=== PATIENT | female | born 1965 | race Caucasian/White ===

== ENCOUNTER → 2019-04-06 | Outpatient (CLI) | payer MEDICARE, OTHER ==
--- NOTE | 2019-04-07 10:16 | WOMENS IMAGING REPORT ---
EXAM DESCRIPTION: 3D SCREENING MAMMO BILAT COMPLETED DATE/TIME: 04/06/2019 3:22 pm REASON FOR STUDY: Z12.31 SCREENING MAMMO Z12.31 ENCNTR SCREEN MAMMOGRAM FOR MALIGNANT NEOPLASM OF B RE COMPARISON: [id number] EXAM PARAMETERS: Views: Standard craniocaudal and mediolateral oblique views of each breast recorded using digital acquisition and breast tomosynthesis. Read with the assistance of CAD. .[facility] - [facility] [employer] Version 9.2 LIMITATIONS: None. FINDINGS: No suspicious masses, suspicious calcifications or architectural distortion. No areas of c oncern. IMPRESSION: NEGATIVE MAMMOGRAM. BIRADS 1. BREAST DENSITY: b. There are scattered areas of fibroglandular density. BIRAD: ASSESSMENT: 1 NEGATIVE RECOMMENDATION: ROUTINE SCREENING COMMENT: The patient has been notified of the results by letter per MQSA requirements. Additional no tification policies are in place for contacting patient with suspicious or incomplete findings. Quality ID #[id number]: The [employer] recommends an annual screening mammogram for women aged 40 years or over. This facility utilizes a reminder system to ensure that all patients receive reminder letters, and/or direct phone calls for appointments. This includes reminders for routine scr eening mammograms, diagnostic mammograms, or other Breast Imaging Interventions when appropriate. Th is patient will be placed in the appropriate reminder system. TECHNICAL DOCUMENTATION: FINDING NUMBER: (1) ASSESSMENT: (1) JOB ID: [id number] [employer]- All Rights Reserved Reading location - IP/workstation name: [email or web address]
== END ==
LOC: WI 14:55
PROVIDERS: ATTEND Nurse Practitioner
DX: Z12.31 Encounter for screening mammogram for malignant neoplasm of breast (principal)
CPT/HCPCS: 77063; 77067

== ENCOUNTER → 2019-04-21 | Outpatient (CLI) | payer MEDICARE, OTHER | LOC: OD 14:43 | PROVIDERS: ATTEND Otolaryngology | DX: J34.3 Hypertrophy of nasal turbinates (principal) | CPT/HCPCS: 36415; 82785; 86003 ==

== ENCOUNTER → 2019-07-26 | Outpatient (CLI) | payer MEDICARE, OTHER ==
--- NOTE | 2019-07-26 15:28 | WOMENS IMAGING REPORT ---
EXAM DESCRIPTION: BONE DENSITY HIP/SPINE COMPLETED DATE/TIME: 07/26/2019 1:51 pm REASON FOR STUDY: M85.851 BONE DENSITY M85.851 OTH DISRD OF BONE DENSITY AND STRUCTURE, RIGHT THIGH COMPARISON: 04/17/2013 TECHNIQUE: Dual-Energy X-ray Absorptiometry (DEXA) of the Hip and Forearm. LIMITATIONS: None. FINDINGS: HIP: The bone mineral density (BMD) measured in the left hip correlates with a T-score of -1.7, which is o steopenia as defined by the World Health Organization. BMD Change vs Baseline: -0.6% FOREARM: The bone mineral density (BMD) measured in the left forearm correlates with a T-score of -2.4 which i s osteopenia as defined by the World Health Organization. BMD Change vs Baseline: N/A 10 year Fracture Risk Assessment: Major Osteoporotic Fracture: 6.5% Hip Fracture: 0.9% IMPRESSION: 1. HIP WHO CLASSIFICATION: Osteopenia 2. FOREARM WHO CLASSIFICATION: Osteopenia OVERALL ASSESSMENT: WHO CLASSIFICATION: Osteopenia COMMENT: The World Health Organization defines low BMD as follows: T-score: Normal: Greater than -1.0 Osteopenia: Between -1.0 and -2.5 Osteoporosis: Less than -2.5 without fractures Established osteoporosis: Less than -2.5 with fractures In general, you may wish to consider: Diagnosis Treatment Follow-up DEXA Normal BMD Prevention 2-3 years Osteopenia Prevention/Therapy 1-2 years Osteoporosis Therapy Yearly TECHNICAL DOCUMENTATION: JOB ID: [id number] 2010 [employer]- All Rights Reserved Reading location - IP/workstation name: [email or web address]
== END ==
LOC: WI 13:30
PROVIDERS: ATTEND Nurse Practitioner
DX: M85.851 Other specified disorders of bone density and structure, right thigh (principal); M85.832 Other specified disorders of bone density and structure, left forearm
CPT/HCPCS: 77080

== ENCOUNTER 2020-03-06 10:35 | Day surgery (SDC) | payer MEDICARE, OTHER ==
[~2020-03-06 10:35] MED LIST: CEFAZOLIN 2 GM/D5W RTU 2 GM/50 ML RTUPB IV PRN
[2020-03-06] MEDS ORDERED: MIDAZOLAM 2 MG/2 ML INJ ONE (11:39)
[2020-03-06] MEDS ORDERED: ONDANSETRON HCL INJ/PF 4 MG/2 ML SDV ONE (11:39)
[2020-03-06] MEDS ORDERED: DEXAMETHASONE SOD PHOS INJ 10 MG/1 ML VIAL ONE (11:39)
[2020-03-06] MEDS ORDERED: HYDROMORPHONE HCL INJ/PF 2 MG/ML AMPULE ONE (11:39)
[2020-03-06] MEDS ORDERED: PROPOFOL INJ 200 MG/20 ML VIAL IV ONE (11:40)
[2020-03-06] MEDS ORDERED: COCAINE HCL 4% TOPICAL SOLN 4 ML ONE (11:42)
[2020-03-06] MEDS ORDERED: LIDOCAINE 2%/EPINEPHRINE INJ 1.7 ML CARTRIDGE ONE ×2 (11:42→12:43)
[2020-03-06] MEDS ORDERED: OXYMETAZOLINE HCL 0.05% NASAL SPRAY 15 ML BOTTLE ONE (11:42)
[2020-03-06] MEDS ORDERED: MUPIROCIN 2% OINTMENT 22 GM ONE (12:52)
--- NOTE | 2020-03-06 13:26 | Operative Report ---
Operative Report-[facility] Operative Report: Date: 06 March 2020 History: 54-year-old female presents with a history of nasal dyspnea. Physical exam revealed a deviated nasal septum, bilateral nasal vestibular stenosis and inferior turbinate hypertrophy. Presents today for a septoplasty, repair nasal vestibular stenosis and turbinate reduction Pre-operative diagnosis: 1. Deviated nasal septum 2. Inferior turbinate hypertrophy, bilateral 3. Bilateral nasal vestibular stenosis Post operative diagnosis: same as above. Procedure: 1. Nasal septoplasty [CPT: 04575] 2. Inferior turbinate reduction, right side [CPT: 07746] 3 . Inferior turbinate reduction, left side [CPT: 67958] 4. Repair nasal vestibular stenosis, right side (CPT: 57375) 5. Repair nasal vestibular stenosis, left side (CPT: 47788) Surgeon: Navdeep Nails MD, FACS, [facility] Anesthia: YENNY Description of the procedure: After receiving informed consent, the patient was brought to the operating room and placed supine on the operating table. After successful induction and intubation by anesthesia, cottonoids soaked with 4% cocaine replaced into each n miguel cavity for approximately five minutes. They were removed andthe septum along with the inferior turbinate were injected with 2% Xylocaine with 1:100,000 epinephrine. The cottonoids were replaced. The patient was then prepped and draped in a sterile fashion. The cottonoids where then removed. A number 15 blade was used to make a natalee transfixtion incision on the left side. Next using a Tran and then A Jameson elevator, a mucoperichondrial/mucoperiosteal flap was elevated back to the sphenoid rostrum. This was then elevated onto the nasal floor. A mucoperichondrial flap was elevated around the caudal edge of the septum and onto the right side. This exposed both sides of the cartilaginous septum. The osseocartilaginous junction was and a mucoperiosteal flap was elevated on the right side. Voss scissors were used to make horizontal cuts in the perpendicular plate of the ethmoid bone, superiorly and inferiorly. Chavo- forceps were used to remove this. A vomeroethmoid spur was identified and the mucosa was carefully dissected from it. A V-chisel was used to remove this spur. An inferior cartilage spur was removed using a D knife . Maxillary crest spur was removed using a V chisel. [place]-Carballo's were used to remove a high septal deflection in the area of the internal nasal valve. The septum was viewed with the flaps in place and found to be relatively straight. The middle turbinates were visible on both sides. The natalee transfixion incision was closed using 4-0 chromic and a 4-0 plain gut whip stitch was used to secure the septal flaps. Attention was then directed to the nasal valve area on the right, where the Sonics nasal airway remodeling system was used to repair the nasal vestibular stenosis. The handpiece was placed superiorly at the caudal margin of the upper lateral cartilage and the device was activated. This was repeated 2 more times marching inferiorly towards the piriform aperture. A similar procedure was done on the left. Attention was then directed to the inferior turbinates. Inferior turbinate reduction was performed using the CBIT A/Son turbinate system and the turbinate microdebrider. Intramural cauterization along with removal of submucosal tissue using the microdebrider was performed on the left inferior turbinate and then this turbinate was medialized and lateralized using a Sayer elevator. The procedure was done on the right side. Silicon splints coated with bacitracin were placed into each nasal cavity and secured with a 2-0 prolene. Afrin soaked cottonoids were placed into each nasal cavity and secured to each other in front of the nose. The patient was then given back to anesthesia who successfully extubated them. The patient tolerated the procedure well without any complications. Estimated blood loss: 10 mL Fluids: 800 mL The patient was transferred to the post anesthesia care unit in stable condition with spontaneous respirations.
== END 2020-03-06 14:27 | disposition home or self-care (01) ==
LOC: SC 10:35
PROVIDERS: ATTEND Otolaryngology
DX: J34.2 Deviated nasal septum (principal); J34.3 Hypertrophy of nasal turbinates; J34.89 Other specified disorders of nose and nasal sinuses; J31.0 Chronic rhinitis; Z03.818 Encounter for observation for suspected exposure to other biological agents ruled out; E11.9 Type 2 diabetes mellitus without complications; Z79.84 Long term (current) use of oral hypoglycemic drugs; Z79.899 Other long term (current) drug therapy; Z87.891 Personal history of nicotine dependence
CPT/HCPCS: 30520; 30140; 30465; 82962; 00160; U0003; J2250; J3490; C9046; J1170; A9270 ×2; J2405; J2704; J1100; J0690; C9803; 160; 87635